=== PATIENT | female | born 1960 | race Caucasian/White ===

== ENCOUNTER 2021-02-15 01:52 | Observation (INO) ==
[2021-02-15] MEDS ORDERED: Naloxone 0.4 MG/ML INJ IVP PRN (12:05)
[2021-02-15 12:49] LABS: Estimated Average Glucose 105 mg/dl; Hemoglobin A1C 5.3 %
[2021-02-15 12:51] LABS: BUN/Creatinine Ratio 15 (6-26); Blood Urea Nitrogen 16 mg/dL (8-23); Calcium 9.3 mg/dL (8.6-10.3); Carbon Dioxide 24 mEq/L (23-29); Chloride 106 mEq/L (98-107); Chol/HDL Ratio 4.2 (0-4.9); Cholesterol 183 mg/dL (< 200); Glucose 90 mg/dL (70-105); HDL Cholesterol 44 mg/dL (40-59); LDL Cholesterol,Calculated 122 mg/dL (< 100); Osmolality,Calculated 287 (280-300); Potassium 3.6 mEq/L (3.5-5.1); Sodium 138 mEq/L (136-145); Triglycerides 84 mg/dL (< 150); Troponin I < 0.03 ng/mL (< 0.04); eGFR For African Americans > 60 (> 60); eGFR For Non-African Americans 53 (> 60)
[2021-02-15] MEDS ORDERED: Perflutren Lipid Microsphere 1.3 ML in 0.9 % Sodium Chloride 8.7 ML IVP PRN (13:46)
[2021-02-15] MEDS ORDERED: Nitroglycerin 0.4 MG TAB.SUBL SL PRN (13:49)
[2021-02-15] MEDS: Aspirin 81 MG TAB.CHEW PO SCH (15:15)
[2021-02-15] MEDS: Isosorbide MONOnitrate (24 HR) 30 MG TAB.ER.24H PO SCH (15:15)
[2021-02-15] MEDS ORDERED: clonazePAM 0.5 MG TABLET PO PRN (20:21)
[2021-02-15] MEDS: Apixaban 5 MG TABLET PO SCH (20:58)
[2021-02-15] MEDS: BuPROPion XL (24 HR) 150 MG TABLET PO SCH (21:00)
[2021-02-16 07:53] VITALS: TEMP 97.7
[2021-02-16] MEDS: BuPROPion XL (24 HR) 150 MG TABLET PO SCH (08:53)
[2021-02-16] MEDS: Aspirin 81 MG TAB.CHEW PO SCH (08:53)
[2021-02-16] MEDS: Isosorbide MONOnitrate (24 HR) 30 MG TAB.ER.24H PO SCH (08:53)
[2021-02-16] MEDS: Apixaban 5 MG TABLET PO SCH (08:53)
[2021-02-16] MEDS ORDERED: clonazePAM 0.5 MG TABLET PO SCH (09:00)
[2021-02-16] MEDS ORDERED: BuPROPion XL (24 HR) 150 MG TABLET PO SCH (09:00)
[2021-02-16 12:09] VITALS: BP 95/53; PULSE 58; O2SAT 96
[2021-02-19] MEDS ORDERED: Cholecalciferol (D-3) 1,000 UNIT (25MCG) TABLET PO SCH (09:00)
== END 2021-02-16 15:30 | disposition home or self-care (01) ==
LOC: CDU → SUATTDRO 11:37
PROVIDERS: ADMIT Student in an Organized Health Care Education/Training Program; ATTEND Pharmacist